=== PATIENT | female | born 1970 | race Caucasian/White ===

== ENCOUNTER 2021-02-17 22:23 | Inpatient (IN) ==
[2021-02-17 22:55] LABS: Basophils # 0.1 K/mcL (0.0-0.2); Basophils % 0.6 %; Eosinophils # 0.2 K/mcL (0.0-0.6); Eosinophils % 2.3 %; Hematocrit 43.5 % (35.3-44.9); Hemoglobin 13.7 g/dL (11.5-15.4); Immature Granulocytes % 0.4 % (0-4); Lymphocytes # 2.1 K/mcL (0.6-4.6); Lymphocytes % 24.5 %; Mean Corpuscular HGB Conc 31.5 g/dL (31.6-35.5); Mean Corpuscular Hemoglobin 26.6 pg (28.0-33.3); Mean Corpuscular Volume 84.5 fL (83.0-100.0); Mean Platelet Volume 10.8 fL (9.4-12.4); Monocytes # 0.7 K/mcL (0.0-1.3); Monocytes % 8.6 %; Neutrophils # 5.3 K/mcL (1.6-8.9); Platelet Count 329 K/mcL (140-400); Red Blood Count 5.15 M/mcL (3.82-4.97); Red Cell Distribution Width 15.2 % (11.5-14.5); Segmented Neutrophils % 63.6 %; White Blood Count 8.4 K/mcL (4.3-11.1)
[2021-02-17 22:58] LABS: Bilirubin,Urine Negative (Negative); Blood,Urine Trace-intact (Negative); Clarity,Urine Cloudy (Clear); Color,Urine Yellow (Yellow); Glucose,Urine (UA) Normal (Normal); Ketones,Urine Negative (Negative); Leukocyte Esterase,Urine Moderate (Negative); Nitrite,Urine Negative (Negative); Protein,Urine Negative (Neg-Trace); Specific Gravity,Urine >= 1.030 (1.010-1.025); Urobilinogen,Urine Normal (Normal)
[2021-02-17 23:03] LABS: Mucus,Urine Moderate per lpf (None-Few); Renal Epithelial Cells,Urine Few per hpf (None-Few); Squamous Epithelial Cell,Urine Many per hpf (None-Few); Transitional Epi Cells,Urine Few per hpf (None-Few); Uric Acid Crystals,Urine Present per hpf; WBC,Urine TNTC per hpf (0-3)
[2021-02-17 23:04] LABS: Estimated Average Glucose 105 mg/dl; Hemoglobin A1C 5.3 %
[2021-02-17] MEDS ORDERED: cephALEXin 500 MG CAPSULE PO ONE (23:06)
[2021-02-17 23:13] LABS: Amphetamine Screen,Urine Negative ng/mL (Cutoff=1000); Barbiturate Screen,Urine Negative ng/mL (Cutoff=200); Benzodiazepines Screen,Urine Negative ng/mL (Cutoff=200); Cannabinoid Screen,Urine Negative ng/mL (Cutoff = 50); Cocaine Screen,Urine Negative ng/mL (Cutoff= 300); Opiate Screen,Urine Negative ng/mL (Cutoff=300); Phencyclidine Screen,Urine Negative ng/mL (Cutoff=25)
[2021-02-17 23:18] LABS: Acetaminophen < 10 mcg/mL (10-20); BUN/Creatinine Ratio 13 (6-26); Blood Urea Nitrogen 9 mg/dL (6-20); Calcium 8.6 mg/dL (8.6-10.3); Carbon Dioxide 24 mEq/L (23-29); Chloride 107 mEq/L (98-107); Chol/HDL Ratio 3.2 (0-4.9); Cholesterol 156 mg/dL (< 200); Ethanol < 10 mg/dL (Less than 10); Glucose 100 mg/dL (70-105); HDL Cholesterol 49 mg/dL (40-59); LDL Cholesterol,Calculated 90 mg/dL (< 100); Osmolality,Calculated 285 (280-300); Potassium 3.7 mEq/L (3.5-5.1); Salicylate < 2.5 mg/dL (15.0-30.0); Sodium 138 mEq/L (136-145); Triglycerides 83 mg/dL (< 150); eGFR For African Americans > 60 (> 60); eGFR For Non-African Americans > 60 (> 60)
[2021-02-18 00:16] LABS: Influenza A PCR Negative (Negative); Influenza B PCR Negative (Negative); Resp. Syncytial Virus PCR Negative (Negative)
[2021-02-18 00:27] LABS: SARS-CoV-2 by PCR (In House) Negative (Negative)
[2021-02-18] MEDS ORDERED: haloperidoL 5 MG TABLET PO PRN (00:39)
[2021-02-18] MEDS ORDERED: Haloperidol Lactate 5 MG/ML VIAL IM PRN (00:39)
[2021-02-18] MEDS ORDERED: *HR* LORazepam 2 MG/ML VIAL IM PRN (00:39)
[2021-02-18] MEDS ORDERED: *HR* LORazepam 1 MG TABLET PO PRN (00:39)
[2021-02-18] MEDS ORDERED: Acetaminophen 325 MG TABLET PO PRN (00:39)
[2021-02-18] MEDS: traZODone 50 MG TABLET PO PRN ×2 (02:09→21:28)
[2021-02-18] MEDS: hydrOXYzine pamoate 25 MG CAPSULE PO PRN ×2 (02:09→21:28)
[2021-02-18] MEDS ORDERED: BuPROPion XL (24 HR) 150 MG TABLET PO SCH (09:00)
[2021-02-18] MEDS ORDERED: tiZANidine 4 MG TABLET PO PRN (10:22)
[2021-02-18] MEDS ORDERED: Ibuprofen 200 MG TABLET PO PRN (10:22)
[2021-02-18] MEDS ORDERED: Gabapentin 100 MG CAPSULE PO PRN (10:22)
[2021-02-18] MEDS ORDERED: Cyanocobalamin (B-12) 1,000 MCG/ML VIAL SQ SCH (10:30)
[2021-02-18] MEDS: Ibuprofen 400 MG TABLET PO PRN (11:50)
[2021-02-18] MEDS: cephALEXin 500 MG CAPSULE PO SCH ×2 (15:59→21:28)
[2021-02-18] MEDS: ARIPiprazole 5 MG TABLET PO SCH (21:28)
[2021-02-18] MEDS: BuPROPion SR (12 HR) 150 MG TABLET PO SCH (21:28)
[2021-02-19] MEDS: BuPROPion SR (12 HR) 150 MG TABLET PO SCH ×2 (08:22→21:00)
[2021-02-19] MEDS: Cholecalciferol (D-3) 1,000 UNIT (25MCG) TABLET PO SCH (08:22)
[2021-02-19] MEDS: cephALEXin 500 MG CAPSULE PO SCH ×3 (08:22→21:00)
[2021-02-19] MEDS: Fluticasone Propionate Nasal 50 MCG/SPRAY BOTTLE NS SCH (08:23)
[2021-02-19] MEDS: traZODone 50 MG TABLET PO PRN (21:00)
[2021-02-19] MEDS: ARIPiprazole 5 MG TABLET PO SCH (21:00)
[2021-02-19] MEDS: hydrOXYzine pamoate 25 MG CAPSULE PO PRN (21:00)
[2021-02-20] MEDS: BuPROPion SR (12 HR) 150 MG TABLET PO SCH ×2 (08:43→21:33)
[2021-02-20] MEDS: cephALEXin 500 MG CAPSULE PO SCH ×3 (08:43→21:33)
[2021-02-20] MEDS: Cholecalciferol (D-3) 1,000 UNIT (25MCG) TABLET PO SCH (08:44)
[2021-02-20] MEDS: Fluticasone Propionate Nasal 50 MCG/SPRAY BOTTLE NS SCH (08:58)
[2021-02-20] MEDS: Ibuprofen 400 MG TABLET PO PRN (18:52)
[2021-02-20] MEDS: traZODone 50 MG TABLET PO PRN (21:33)
[2021-02-20] MEDS: hydrOXYzine pamoate 25 MG CAPSULE PO PRN (21:33)
[2021-02-20] MEDS: ARIPiprazole 5 MG TABLET PO SCH (21:33)
[2021-02-21] MEDS: traZODone 50 MG TABLET PO PRN (02:25)
[2021-02-21] MEDS: Cholecalciferol (D-3) 1,000 UNIT (25MCG) TABLET PO SCH (08:19)
[2021-02-21] MEDS: cephALEXin 500 MG CAPSULE PO SCH ×3 (08:19→20:09)
[2021-02-21] MEDS: BuPROPion SR (12 HR) 150 MG TABLET PO SCH ×2 (08:19→20:06)
[2021-02-21] MEDS: Fluticasone Propionate Nasal 50 MCG/SPRAY BOTTLE NS SCH (08:25)
[2021-02-21] MEDS: Ibuprofen 400 MG TABLET PO PRN ×2 (13:03→20:06)
[2021-02-21] MEDS: ARIPiprazole 5 MG TABLET PO SCH (20:09)
[2021-02-21] MEDS ORDERED: traZODone 50 MG TABLET PO SCH (21:00)
[2021-02-22] MEDS: Ibuprofen 400 MG TABLET PO PRN (05:42)
[2021-02-22 08:13] VITALS: BP 118/82; PULSE 84; TEMP 98.2; O2SAT 98
[2021-02-22] MEDS: Cholecalciferol (D-3) 1,000 UNIT (25MCG) TABLET PO SCH (08:25)
[2021-02-22] MEDS: Fluticasone Propionate Nasal 50 MCG/SPRAY BOTTLE NS SCH (08:25)
[2021-02-22] MEDS: BuPROPion SR (12 HR) 150 MG TABLET PO SCH (08:26)
[2021-02-22] MEDS: cephALEXin 500 MG CAPSULE PO SCH (08:26)
[2021-02-22] MEDS ORDERED: FLU Vac QV 21-22 (6Month+)/PF 0.5 ML SYRINGE IM ONE (09:04)
== END 2021-02-22 11:25 | disposition home or self-care (01) | DRG 751 ==
LOC: EMEROOARM 22:23 → 1ANU 02-18 00:37
PROVIDERS: ADMIT Psychiatry & Neurology Psychiatry; ATTEND Psychiatry & Neurology Psychiatry